=== PATIENT | male | born 1980 ===

== ENCOUNTER 2017-08-13 07:09 | Outpatient (CLI) | payer OTHER | END 2017-08-13 07:36 | disposition home or self-care (01) | LOC: LAB 07:09 | DX: I10 Essential (primary) hypertension (principal); E11.9 Type 2 diabetes mellitus without complications; E03.8 Other specified hypothyroidism; E78.2 Mixed hyperlipidemia; M81.0 Age-related osteoporosis without current pathological fracture; N64.89 Other specified disorders of breast ==

== ENCOUNTER 2017-08-13 07:29 | Outpatient (CLI) | payer OTHER | END 2017-08-13 11:11 | disposition home or self-care (01) | LOC: RAD 07:29 | DX: J44.9 Chronic obstructive pulmonary disease, unspecified (principal) ==

== ENCOUNTER 2018-03-11 08:34 | Outpatient (CLI) | payer OTHER | END 2018-03-11 08:49 | disposition home or self-care (01) | LOC: LAB 08:34 → RAD 08:34 | DX: A64 Unspecified sexually transmitted disease (principal); J44.9 Chronic obstructive pulmonary disease, unspecified ==

== ENCOUNTER 2019-02-24 10:02 | Outpatient (CLI) | payer OTHER | END 2019-02-24 10:19 | disposition home or self-care (01) | LOC: LAB 10:02 | DX: E03.8 Other specified hypothyroidism (principal); I10 Essential (primary) hypertension; E11.9 Type 2 diabetes mellitus without complications; E78.2 Mixed hyperlipidemia; M81.0 Age-related osteoporosis without current pathological fracture ==

== ENCOUNTER 2019-12-08 08:58 | Outpatient (CLI) | payer OTHER | END 2019-12-08 15:00 | disposition home or self-care (01) | LOC: LAB 08:58 | PROVIDERS: ATTEND Internal Medicine Cardiovascular Disease | DX: I10 Essential (primary) hypertension (principal); E11.9 Type 2 diabetes mellitus without complications; E03.8 Other specified hypothyroidism; E78.2 Mixed hyperlipidemia; N40.0 Benign prostatic hyperplasia without lower urinary tract symptoms; M81.0 Age-related osteoporosis without current pathological fracture ==

== ENCOUNTER → 2021-02-02 15:48 | Outpatient (CLI) | payer OTHER | END | disposition home or self-care (01) | LOC: RAD 15:48 | PROVIDERS: ATTEND Internal Medicine Cardiovascular Disease | DX: J44.9 Chronic obstructive pulmonary disease, unspecified (principal) ==